=== PATIENT | male | born 1945 | race Caucasian/White ===

== ENCOUNTER 2020-01-07 11:37 | Outpatient (REF) | payer MEDICARE, SELFPAY ==
--- NOTE | 2020-01-07 | US_ITS ---
EXAMINATION: US RETROPERITONEAL LIMITED (RENAL ONLY) CLINICAL INFORMATION: Renal cysts. COMPARISON: Renal ultrasound 03/15/2019 and 11/26/2018. X-ray abdomen KUB 11/06/2015. TECHNIQUE: Real-time imaging of the kidneys. FINDINGS: RIGHT KIDNEY: 14.9 x 5.6 x 6.5 cm (SAG x AP x TRV). The kidney is normal in size, contour, and echogenicity. Renal cortical thickness is normal. No renal calculi or hydronephrosis. There are multiple anechoic cysts. The largest one measuring 7.2 x 3.5 x 5.1 LEFT KIDNEY: 11.8 x 5.4 x 4.7 cm (SAG x AP x TRV). The kidney is normal in size, contour, and echogenicity. Renal cortical thickness is normal. No renal calculi or hydronephrosis. There are multiple anechoic cysts. The largest cyst measuring 2.9 x 4.0 x 4.0 cm. US/US renal BI IMPRESSION: Multiple bilateral renal cysts. No echogenic stone or hydronephrosis seen.
== END 2020-01-07 11:38 | disposition home or self-care (01) ==
LOC: HO.HMGCX 11:37
PROVIDERS: PCP Nurse Practitioner Family; Visit Provider Urology
DX: N28.1 Cyst of kidney, acquired (principal)
CPT/HCPCS: 76775

== ENCOUNTER → 2020-01-21 15:01 | Outpatient (BNVA) | payer MEDICARE, SELFPAY | PROVIDERS: PCP Nurse Practitioner Family; Referring Provider Nurse Practitioner Family; Visit Provider Urology | DX: Z76.89 Persons encountering health services in other specified circumstances (principal) | CPT/HCPCS: Q3014 ==

== ENCOUNTER 2020-03-30 07:39 | Outpatient (REF) | payer MEDICARE, SELFPAY ==
[2020-03-30 12:06] LABS: PSA,Total (Free>4and<10) 1.98 ng/mL (0.00-4.00)
== END 2020-03-30 07:40 | disposition home or self-care (01) ==
LOC: HO.HMGCLDS 07:39
PROVIDERS: PCP Nurse Practitioner Family; Visit Provider Urology
DX: Z12.5 Encounter for screening for malignant neoplasm of prostate (principal); R97.20 Elevated prostate specific antigen [PSA]
CPT/HCPCS: 36415; 84153

== ENCOUNTER → 2020-04-14 15:52 | Outpatient (BNVA) | payer MEDICARE, SELFPAY | PROVIDERS: PCP Nurse Practitioner Family; Visit Provider Urology | CPT/HCPCS: Q3014 ==

== ENCOUNTER 2020-05-04 06:37 | Outpatient (REF) | payer MEDICARE, SELFPAY ==
[2020-05-04 11:41] LABS: Alanine Aminotransferase 22 U/L (0-40); Alkaline Phosphatase 71 U/L (39-117); Anion Gap 14 (12-20); Aspartate Amino Transferase 20 U/L (5-37); Bilirubin Total 0.9 mg/dL (0.0-1.0); Blood Urea Nitrogen 21 mg/dL (9-16); Calcium 8.6 mg/dL (8.4-10.2); Carbon Dioxide 25 mmol/L (22-29); Chloride 109 mmol/L (96-108); Cholesterol 146 mg/dL; Estimated Glomerular Filt Rate 47; Glucose Fasting 94 mg/dL (60-99); HDL Cholesterol 48 mg/dL; LDL Cholesterol Calculated 78 mg/dl; Sodium 144 mmol/L (135-145); Total Protein 6.7 g/dL (6.5-8.0); Triglycerides 104 mg/dL
[2020-05-04 12:08] LABS: TSH reflex Free T4 1.96 uIU/mL (0.32-4.0)
== END 2020-05-04 06:38 | disposition home or self-care (01) ==
LOC: HO.HMGCLDS 06:37
PROVIDERS: PCP Nurse Practitioner Family; Visit Provider Nurse Practitioner Family
DX: I10 Essential (primary) hypertension (principal)
CPT/HCPCS: 36415; 80053; 80061; 84443

== ENCOUNTER 2020-10-22 13:38 | Outpatient (REF) | payer MEDICARE, SELFPAY ==
--- NOTE | ~2020-10-22 | US_ITS ---
EXAMINATION: US RETROPERITONEAL LIMITED (RENAL ONLY) CLINICAL INFORMATION: Calculus of kidney. COMPARISON: Bilateral renal ultrasound dated 01/07/2020. Renal cyst on the ultrasound dated 03/15/2019. KUB dated 11/06/2015. CT abdomen and pelvis with oral contrast only dated 11/02/2015. TECHNIQUE: Real-time imaging of the kidneys. FINDINGS: RIGHT KIDNEY: 13.5 x 6.7 x 7.5 cm (SAG x AP x TRV). The kidney has normal cortical thickness and cortical echotexture. Again noted are multiple cortical and parapelvic renal cysts which have the appearance of Bosniak category 1 cysts. The largest cyst measures up to 6.9 cm. No suspicious renal lesions. No thick septations or wall nodularity. No sonographic evidence of renal calculi or hydronephrosis. LEFT KIDNEY: 12.0 x 5.3 x 5.5 cm (SAG x AP x TRV). The kidney has normal cortical thickness and normal cortical echotexture. No evidence of nephrolithiasis or hydronephrosis. Again noted are multiple anechoic cysts (Bosniak category 1 cysts), largest measuring up to 4.4 cm. No suspicious renal lesion. Renal imaging follow-up is not recommended for asymptomatic benign renal cysts. US/US renal BI IMPRESSION: * No sonographic evidence of nephrolithiasis or hydronephrosis. * Multiple benign cysts are again noted within each kidney. No suspicious renal lesions.
[2020-10-22 18:33] LABS: Prostate Specific Antigen 3.69 ng/mL (<0.05-4.0)
== END 2020-10-22 13:39 | disposition home or self-care (01) ==
LOC: HO.HMGCX 13:38
PROVIDERS: PCP Nurse Practitioner Family; Visit Provider Urology
DX: Z12.5 Encounter for screening for malignant neoplasm of prostate (principal); N20.0 Calculus of kidney; N13.8 Other obstructive and reflux uropathy; N40.1 Benign prostatic hyperplasia with lower urinary tract symptoms; R97.20 Elevated prostate specific antigen [PSA]
CPT/HCPCS: 36415; 76775; 84153

== ENCOUNTER 2020-11-05 15:15 | Outpatient (REF) | payer MEDICARE, SELFPAY ==
[2020-11-05 16:23] LABS: Hematocrit 45.6 % (42-52); Hemoglobin 14.8 g/dl (14.0-18.0); Mean Corpuscular HGB Conc 32.5 g/dl (31.0-36.0); Mean Corpuscular Hemoglobin 30.4 pg (27.0-33.0); Mean Corpuscular Volume 93.6 fL (80-98); Platelet Count 150 X10*3/uL (160-400); Red Blood Count 4.87 X10*6/uL (4.60-5.80); Red Cell Distribution Width 12.7 % (11.0-16.0); White Blood Count 7.9 X10*3/uL (4.8-10.8)
[2020-11-05 16:47] LABS: Anion Gap 12 (12-20); Blood Urea Nitrogen 26 mg/dL (9-16); Calcium 8.5 mg/dL (8.4-10.2); Carbon Dioxide 23 mmol/L (22-29); Chloride 110 mmol/L (96-108); Estimated Glomerular Filt Rate 39; Potassium 3.9 mmol/L (3.3-5.1); Sodium 141 mmol/L (135-145)
== END 2020-11-05 15:16 | disposition home or self-care (01) ==
LOC: HO.HMGCLDS 15:15
PROVIDERS: PCP Nurse Practitioner Family; Visit Provider Internal Medicine Nephrology
DX: N20.0 Calculus of kidney (principal); I10 Essential (primary) hypertension
CPT/HCPCS: 36415; 80051; 82310; 82565; 84100; 84520; 85027

== ENCOUNTER → 2020-11-10 13:10 | Outpatient (BNVA) | payer MEDICARE, SELFPAY | PROVIDERS: PCP Nurse Practitioner Family; Visit Provider Urology | DX: Z13.89 Encounter for screening for other disorder (principal) | CPT/HCPCS: Q3014 ==

== ENCOUNTER → 2021-05-06 11:35 | Outpatient (BNVA) | payer MEDICARE, SELFPAY | PROVIDERS: PCP Nurse Practitioner Family; Visit Provider Urology | DX: N28.1 Cyst of kidney, acquired (principal); R97.20 Elevated prostate specific antigen [PSA] | CPT/HCPCS: Q3014 ==

== ENCOUNTER 2021-10-15 11:21 | Outpatient (REF) | payer MEDICARE, SELFPAY ==
--- NOTE | ~2021-10-15 | US_ITS ---
EXAMINATION: US RETROPERITONEAL LIMITED (RENAL ONLY) CLINICAL INFORMATION: Cystic kidney, acquired. COMPARISON: Renal ultrasound 10/22/2020 and 01/07/2020. CT abdomen and pelvis 11/02/2015. TECHNIQUE: Real-time imaging of the kidneys. FINDINGS: RIGHT KIDNEY: 13.6 x 6.9 x 8.7 cm (SAG x AP x TRV). No nephrolithiasis or hydronephrosis. Again noted are multiple Bosniak category 1 cysts, including 6.2 cm cortical cyst of the upper pole. A stable simple peripelvic cyst in the interpolar area measures up to 6.7 cm maximum dimension. A lower pole cyst with thin septation measures up to 4.3 cm (4 cm on 10/22/2020). No renal imaging follow-up is recommended for Bosniak category 1 or category 2 cysts. LEFT KIDNEY: 12.0 x 6.3 x 5.8 cm (SAG x AP x TRV). No nephrolithiasis or hydronephrosis. Again noted are several Bosniak category 1 cysts, largest measuring up to 4.9 cm (approximately 4.5 cm on 10/22/2020). A Bosniak category 2 cyst with thin septation measures up to 2.8 cm (2.9 cm on 10/24/2020). No interval development of a suspicious renal lesion. US/US renal BI IMPRESSION: There are Bosniak category 1 and category 2 cysts of the kidneys. No follow-up imaging recommended for these types of cysts, if asymptomatic. No new renal abnormalities. No nephrolithiasis or hydronephrosis.
== END 2021-10-15 11:22 | disposition home or self-care (01) ==
LOC: HO.HMGCX 11:21
PROVIDERS: PCP Nurse Practitioner Family; Visit Provider Urology
DX: N28.1 Cyst of kidney, acquired (principal)
CPT/HCPCS: 76775

== ENCOUNTER → 2021-11-05 11:10 | Outpatient (BNVA) | payer MEDICARE, SELFPAY | PROVIDERS: PCP Nurse Practitioner Family; Visit Provider Urology | DX: R97.20 Elevated prostate specific antigen [PSA] (principal); N20.0 Calculus of kidney | CPT/HCPCS: 99212 ==